=== PATIENT | male | born 2000 | race Caucasian/White ===

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

== ENCOUNTER → 2018-03-30 | Outpatient (CLI) | payer OTHER ==
--- NOTE | ~2018-03-30 | EKG ---
[place], [place] ELECTROCARDIOGRAM REPORT NAME: ZAINAB MEDINA UNIT #: [id number] ROOM: DOCTOR: ED DRAFT REPORT BIRTHDATE: [birth year] [facility] Test Date: 2018-03-30 Test Time: 15:40:41 Pat Name: ZAINAB MEDINA Department: Room: Gender: Complaint Evaluation Supervisor: Terra Boone : 2000 Requested By: ERLINDA CALVILLO Order Number: [id number] Reading MD: Yanna Torres MD Measurements Intervals Elbert Rate: 71 P: 28 NE: 166 QRS: 60 QRSD: 93 T: 10 QT: 369 QTc: 401 Interpretive Statements Sinus rhythm No previous ECG available for comparison Electronically Signed On 03-30-2018 15:07:23 PST by Yanna Torres MD CM:EKGRPT:ELECTROCARDIOGRAM REPORT [id number] ERLINDA WARD DRAFT REPORT ERLINDA CALVILLO
== END | disposition home or self-care (01) ==
LOC: CARD 15:24 → LAB 15:24
DX: Z51.81 Encounter for therapeutic drug level monitoring (principal); Z79.899 Other long term (current) drug therapy

== ENCOUNTER 2019-04-17 17:53 | Emergency (ER) | payer OTHER ==
[~2019-04-17] VITALS: Ht 187.9 cm; Wt 98.9 kg
== END 2019-04-17 18:33 | disposition home or self-care (01) ==
LOC: ED 17:53
DX: S93.402A Sprain of unspecified ligament of left ankle, initial encounter (principal); E66.9 Obesity, unspecified; X50.1XXA Overexertion from prolonged static or awkward postures, initial encounter; Y93.67 Activity, basketball; Y92.89 Other specified places as the place of occurrence of the external cause; Y99.8 Other external cause status